=== PATIENT | male | born 1960 | race Caucasian/White ===

== ENCOUNTER 2017-03-17 19:43 | Emergency (ER) | payer OTHER ==
[2017-03-17 22:04] LABS: ADD MAN DIFF? NO
[2017-03-17 22:09] LABS: WHITE BLOOD COUNT 9.6 10^3/ul (4.8-10.8)
[2017-03-17 22:09] LABS: BASOPHILS % 0.4 % (0.0-2.0); EOSINOPHILS # 0.2 10^3/ul (0.0-0.5); EOSINOPHILS % 1.7 % (0.0-7.0); HEMATOCRIT 44.9 % (42.0-52.0); HEMOGLOBIN 15.1 g/dl (14.0-18.0); LYMPHOCYTES # 1.7 10^3/ul (0.8-2.9); MEAN CORPUSCULAR HEMOGLOBIN 28.2 pg (29.0-33.0); MEAN CORPUSCULAR HGB CONC 33.6 g/dl (32.0-37.0); MEAN CORPUSCULAR VOLUME 83.9 fl (82.0-101.0); MEAN PLATELET VOLUME 9.6 fl (7.4-10.4); MONOCYTE # 0.8 10^3/ul (0.3-0.9); MONOCYTES % 8.2 % (0.0-11.0); NEUTROPHIL # 6.9 10^3/ul (1.6-7.5); NEUTROPHILS % 71.4 % (39.0-77.0); PLATELET COUNT 224 10^3/UL (140-415); RED BLOOD COUNT 5.35 10^6/ul (4.70-6.10); RED CELL DISTRIBUTION WIDTH 13.3 % (11.5-14.5)
[2017-03-17 22:27] LABS: ANION GAP 13 (8-16); BLOOD UREA NITROGEN 22 mg/dl (7-20); CALCIUM 9.9 mg/dl (8.4-10.2); CARBON DIOXIDE 28 mmol/L (21-31); CHLORIDE 106 mmol/L (97-110); CREATININE 1.05 mg/dl (0.61-1.24); GLUCOSE 109 mg/dl (70-220); POTASSIUM 4.1 mmol/L (3.5-5.1); SODIUM 143 mmol/L (135-144)
[2017-03-17 22:39] LABS: TROPONIN-I < 0.012 ng/ml (0.00-0.12)
[2017-03-18] MEDS ORDERED: ONDANSETRON 4 MG TAB PO (01:00)
[2017-03-18] MEDS ORDERED: LORAZEPAM 2 MG INJ IV (01:00)
[2017-03-18] MEDS ORDERED: HEPARIN 25000 UNITS/250 ML 250 ML IV (01:00)
[2017-03-18] MEDS ORDERED: BISACODYL (EC) 5 MG TAB PO (01:00)
[2017-03-18] MEDS ORDERED: NACL 0.9% 3 ML SYG IV (01:00)
[2017-03-18] MEDS ORDERED: ONDANSETRON 4 MG INJ IV ×3 (01:00→01:30)
[2017-03-18] MEDS ORDERED: HYDROmorphONE 0.5 MG/0.5 ML SYG IV (01:00)
[2017-03-18] MEDS ORDERED: HYDROCODONE/APAP (5/325) TAB PO (01:00)
[2017-03-18] MEDS ORDERED: ZOLPIDEM 5 MG TAB PO (01:00)
[2017-03-18] MEDS ORDERED: ACETAMINOPHEN 325 MG TAB PO ×3 (01:00)
[2017-03-18] MEDS ORDERED: DOCUSATE SODIUM 100 MG CAP PO (01:00)
[2017-03-18] MEDS ORDERED: NA PHOSPHATE/BIPHOS 133 ML ENEMA PR (01:00)
[2017-03-18 01:37] LABS: ADD MAN DIFF? NO
[2017-03-18 01:42] LABS: BASOPHILS % 0.4 % (0.0-2.0); EOSINOPHILS # 0.2 10^3/ul (0.0-0.5); EOSINOPHILS % 2.4 % (0.0-7.0); HEMATOCRIT 42.6 % (42.0-52.0); HEMOGLOBIN 14.6 g/dl (14.0-18.0); LYMPHOCYTES # 2.4 10^3/ul (0.8-2.9); LYMPHOCYTES % 33.9 % (15.0-51.0); MEAN CORPUSCULAR HEMOGLOBIN 28.7 pg (29.0-33.0); MEAN CORPUSCULAR HGB CONC 34.3 g/dl (32.0-37.0); MEAN CORPUSCULAR VOLUME 83.9 fl (82.0-101.0); MEAN PLATELET VOLUME 9.4 fl (7.4-10.4); MONOCYTE # 0.6 10^3/ul (0.3-0.9); NEUTROPHIL # 3.9 10^3/ul (1.6-7.5); PLATELET COUNT 209 10^3/UL (140-415); RED BLOOD COUNT 5.08 10^6/ul (4.70-6.10); RED CELL DISTRIBUTION WIDTH 13.2 % (11.5-14.5)
[2017-03-18 01:42] LABS: WHITE BLOOD COUNT 7.1 10^3/ul (4.8-10.8)
[2017-03-18 02:03] LABS: CREATINE KINASE 100 IU/L (23-200)
[2017-03-18 02:09] LABS: INR 0.98; PARTIAL THROMBOPLASTIN TIME 25.4 Sec (25.0-35.0); PROTIME 13.1 Sec (11.9-14.9)
[2017-03-18 02:14] LABS: CK INDEX 1.3
[2017-03-18 02:21] LABS: CK-MB 1.26 ng/ml (0.0-2.4)
[2017-03-18 02:38] LABS: TROPONIN-I < 0.012 ng/ml (0.00-0.12)
[2017-03-18 02:48] LABS: ADD UMIC YES; UR AMORPHOUS CRYSTAL MANY /HPF (NONE SEEN); UR ASCORBIC ACID NEGATIVE (NEGATIVE); UR BILIRUBIN (Dip) NEGATIVE (NEGATIVE); UR BLOOD (Dip) NEGATIVE (NEGATIVE); UR CLARITY CLOUDY (CLEAR); UR COLOR RED (YELLOW); UR GLUCOSE (Dip) NEGATIVE (NEGATIVE); UR KETONES (Dip) NEGATIVE (NEGATIVE); UR LEUKOCYTE ESTERASE (Dip) NEGATIVE Leu/ul (NEGATIVE); UR NITRITE (Dip) NEGATIVE (NEGATIVE); UR RBC 0 /HPF (0-5); UR SPECIFIC GRAVITY (Dip) 1.013 (1.003-1.030); UR SQUAMOUS EPITHELIAL CELL FEW /HPF (FEW); UR TOTAL PROTEIN (Dip) NEGATIVE (NEGATIVE); UR UROBILINOGEN (Dip) NEGATIVE (NEGATIVE); UR WBC 0 /HPF (0-5)
[2017-03-18 02:49] LABS: AMPHETAMINE/METHAMPHETAMINE Negative (NEGATIVE); BARBITURATES Negative (NEGATIVE); BENZODIAZEPINES Negative (NEGATIVE); CANNABINOIDS Negative (NEGATIVE); COCAINE Negative (NEGATIVE); OPIATES Negative (NEGATIVE)
[2017-03-18 02:50] LABS: UR BACTERIA FEW /HPF (NONE SEEN)
[2017-03-18] MEDS: SOD CHLORIDE 0.9% 1,000 ML IV (03:29)
[2017-03-18] MEDS: PANTOPRAZOLE 40 MG INJ IV ×2 (03:30→06:00)
[2017-03-18 06:32] LABS: CREATINE KINASE 78 IU/L (23-200)
[2017-03-18 06:44] LABS: CK INDEX 1.4
[2017-03-18 06:45] LABS: CK-MB 1.08 ng/ml (0.0-2.4); TROPONIN-I < 0.012 ng/ml (0.00-0.12)
[2017-03-18] MEDS: CALCIUM CARBONATE 500 MG CHEW TAB PO ×2 (08:51→13:36)
[2017-03-18] MEDS: ASPIRIN (EC) 325 MG TAB PO (08:51)
[2017-03-18] MEDS: ISOSORBIDE MONONITRATE(SR)30 MG TAB PO (08:53)
[2017-03-18] MEDS: RANOLAZINE (SR) 500 MG TAB PO (08:55)
[2017-03-18] MEDS: METOPROLOL 25 MG TAB PO (08:55)
[2017-03-18] MEDS: HEPARIN 5,000 UNIT/0.5 ML VIAL SC (08:59)
[2017-03-18] MEDS ORDERED: FAMOTIDINE 20 MG INJ IV (09:00)
[2017-03-18] MEDS ORDERED: AMLODIPINE 10 MG TAB PO (09:00)
[2017-03-18] MEDS ORDERED: GABAPENTIN 100 MG CAP PO (09:00)
[2017-03-18] MEDS ORDERED: ISOSORBIDE MONONITRATE(SR)60 MG TAB PO (09:00)
[2017-03-18 10:47] LABS: ALANINE AMINOTRANSFERASE 32 IU/L (13-69); ALBUMIN 3.9 g/dl (3.3-4.9); ALBUMIN/GLOBULIN RATIO 1.44; ALKALINE PHOSPHATASE 49 IU/L (42-121); ANION GAP 11 (8-16); ASPARTATE AMINO TRANSFERASE 15 IU/L (15-46); BILIRUBIN,INDIRECT 0.8 mg/dl (0-1.1); BILIRUBIN,TOTAL 0.8 mg/dl (0.2-1.3); BLOOD UREA NITROGEN 15 mg/dl (7-20); CALCIUM 9.3 mg/dl (8.4-10.2); CARBON DIOXIDE 27 mmol/L (21-31); CHLORIDE 106 mmol/L (97-110); CHOL/HDL RATIO 3.8 RATIO; CHOLESTEROL 200 mg/dl (100-200); CREATININE 0.79 mg/dl (0.61-1.24); GLUCOSE 109 mg/dl (70-220); HDL CHOLESTEROL 52 mg/dl (28-71); LDL CHOLESTEROL,CALCULATED 137 mg/dl; POTASSIUM 3.7 mmol/L (3.5-5.1); SODIUM 140 mmol/L (135-144); TOTAL PROTEIN 6.6 g/dl (6.1-8.1); TRIGLYCERIDES 55 mg/dl (0-149)
[2017-03-18 11:05] LABS: MAGNESIUM 1.9 mg/dl (1.7-2.5)
[2017-03-18] MEDS ORDERED: REGADENOSON 0.4 MG/5 ML SYG (11:50)
[2017-03-18] MEDS ORDERED: ATORVASTATIN 20 MG TAB PO (21:00)
[2017-03-19] MEDS ORDERED: ASPIRIN 81 MG TAB PO (09:00)
[2017-03-19] MEDS ORDERED: RANOLAZINE (SR) 500 MG TAB PO (09:00)
[2017-03-19] MEDS ORDERED: CLOPIDOGREL 75 MG TAB PO (09:00)
== END 2017-03-18 15:18 | disposition home or self-care (01) ==
LOC: E/R 19:43
DX: R07.81 Pleurodynia (principal); I25.10 Atherosclerotic heart disease of native coronary artery without angina pectoris; I10 Essential (primary) hypertension; R07.9 Chest pain, unspecified; Z79.82 Long term (current) use of aspirin; Z98.61 Coronary angioplasty status
CPT/HCPCS: 36415; 71045; 78452; 80048; 80053; 80061; 80307; 81001; 82550; 82553; 83735; 84484; 85025; 85610; 85730; 86850; 86900; 86901; 87086; 93005; 93017; 93306; 96372; 99285-25

== ENCOUNTER 2018-08-03 07:49 | Observation (INO) | payer OTHER ==
[2018-08-03 08:04] LABS: ADD MAN DIFF? NO
[2018-08-03 08:06] LABS: WHITE BLOOD COUNT 10.3 10^3/ul (4.8-10.8)
[2018-08-03 08:06] LABS: BASOPHILS % 0.4 % (0.0-2.0); EOSINOPHILS # 0.1 10^3/ul (0.0-0.5); EOSINOPHILS % 1.4 % (0.0-7.0); HEMATOCRIT 46.4 % (42.0-52.0); HEMOGLOBIN 15.8 g/dl (14.0-18.0); LYMPHOCYTES # 2.3 10^3/ul (0.8-2.9); LYMPHOCYTES % 22.2 % (15.0-51.0); MEAN CORPUSCULAR HEMOGLOBIN 28.3 pg (29.0-33.0); MEAN CORPUSCULAR HGB CONC 34.1 g/dl (32.0-37.0); MEAN CORPUSCULAR VOLUME 83.2 fl (82.0-101.0); MEAN PLATELET VOLUME 9.5 fl (7.4-10.4); MONOCYTE # 0.6 10^3/ul (0.3-0.9); MONOCYTES % 6.2 % (0.0-11.0); NEUTROPHIL # 7.2 10^3/ul (1.6-7.5); NEUTROPHILS % 69.4 % (39.0-77.0); PLATELET COUNT 224 10^3/UL (140-415); RED BLOOD COUNT 5.58 10^6/ul (4.70-6.10); RED CELL DISTRIBUTION WIDTH 13.1 % (11.5-14.5)
[2018-08-03] MEDS: ONDANSETRON 4 MG INJ IV (08:14)
[2018-08-03] MEDS: morphine 4 MG/ML VIAL IV (08:14)
[2018-08-03 08:25] LABS: ALANINE AMINOTRANSFERASE 37 IU/L (13-69); ALBUMIN/GLOBULIN RATIO 1.33; ALKALINE PHOSPHATASE 58 IU/L (42-121); ANION GAP 9 (5-13); ASPARTATE AMINO TRANSFERASE 21 IU/L (15-46); BILIRUBIN,INDIRECT 1.2 mg/dl (0-1.1); BILIRUBIN,TOTAL 1.2 mg/dl (0.2-1.3); BLOOD UREA NITROGEN 18 mg/dl (7-20); CALCIUM 9.4 mg/dl (8.4-10.2); CARBON DIOXIDE 27 mmol/L (21-31); CHLORIDE 106 mmol/L (97-110); CREATINE KINASE 86 IU/L (23-200); CREATININE 0.89 mg/dl (0.61-1.24); Estimated GFR > 60 mL/min (>60); GLUCOSE 130 mg/dl (70-220); INR 0.89; LIPASE 66 U/L (23-300); POTASSIUM 3.9 mmol/L (3.5-5.1); PROTIME 12.1 Sec (11.9-14.9); PT RATIO 0.9; SODIUM 142 mmol/L (135-144)
[2018-08-03 08:26] LABS: PARTIAL THROMBOPLASTIN TIME 26.4 Sec (23.0-35.0)
[2018-08-03 08:37] LABS: B-TYPE NATRIURETIC PEPTIDE 39 PG/ML (0-125); CK-MB 0.86 ng/ml (0.0-2.4); TROPONIN-I < 0.012 ng/ml (0.000-0.120)
[2018-08-03] MEDS: IOHEXOL 100 ML (09:24)
[2018-08-03] MEDS: SOD CHLORIDE 0.9% 100 ML (09:24)
[2018-08-03] MEDS ORDERED: ONDANSETRON 4 MG INJ IV ×2 (11:00→12:00)
[2018-08-03] MEDS ORDERED: ACETAMINOPHEN 325 MG TAB PO ×2 (11:00→12:00)
[2018-08-03] MEDS: ASPIRIN 81 MG TAB PO (11:03)
[2018-08-03] MEDS ORDERED: NITROGLYCERIN (SL) 0.4 MG TAB SL (12:00)
[2018-08-03] MEDS ORDERED: HYDROCODONE/APAP (5/325) TAB PO (12:00)
[2018-08-03] MEDS ORDERED: NACL 0.9% 3 ML SYG IV (12:00)
[2018-08-03 12:37] LABS: B-TYPE NATRIURETIC PEPTIDE 33 PG/ML (0-125)
[2018-08-03 13:18] LABS: HEMOGLOBIN A1C 5.7 % (0-5.9)
[2018-08-03 13:44] LABS: THYROID STIMULATING HORMONE 0.222 MIU/L (0.465-4.680)
[2018-08-03] MEDS: MECLIZINE 12.5 MG TAB PO (13:53)
[2018-08-03 17:19] LABS: FREE T4 (FREE THYROXINE) 1.96 ng/dl (0.64-1.79)
[2018-08-03 19:48] LABS: CREATINE KINASE 64 IU/L (23-200)
[2018-08-03 19:59] LABS: CK INDEX 0.9; CK-MB 0.59 ng/ml (0.0-2.4)
[2018-08-03 20:24] LABS: TROPONIN-I < 0.012 ng/ml (0.000-0.120)
[2018-08-03] MEDS: ATORVASTATIN 40 MG TAB PO (20:56)
[2018-08-03] MEDS: AMLODIPINE 5 MG TAB PO (20:56)
[2018-08-03] MEDS ORDERED: PROPRANOLOL 20 MG TAB PO (21:00)
[2018-08-04 00:10] LABS: CREATINE KINASE 54 IU/L (23-200)
[2018-08-04 00:21] LABS: CK INDEX 0.9; TROPONIN-I < 0.012 ng/ml (0.000-0.120)
[2018-08-04] MEDS: ASPIRIN (EC) 81 MG TAB PO (08:41)
[2018-08-04] MEDS: ISOSORBIDE MONONITRATE(SR)60 MG TAB PO (08:41)
[2018-08-04] MEDS: CLOPIDOGREL 75 MG TAB PO (08:41)
[2018-08-04] MEDS: AMLODIPINE 5 MG TAB PO (08:42)
[2018-08-04] MEDS: ENOXAPARIN 40 MG/0.4 ML SYG SC (08:46)
[2018-08-04 09:09] LABS: ADD MAN DIFF? NO
[2018-08-04 09:11] LABS: WHITE BLOOD COUNT 8.1 10^3/ul (4.8-10.8)
[2018-08-04 09:11] LABS: BASOPHILS % 0.4 % (0.0-2.0); EOSINOPHILS # 0.1 10^3/ul (0.0-0.5); EOSINOPHILS % 0.7 % (0.0-7.0); HEMATOCRIT 46.5 % (42.0-52.0); HEMOGLOBIN 15.6 g/dl (14.0-18.0); LYMPHOCYTES # 1.8 10^3/ul (0.8-2.9); LYMPHOCYTES % 22.1 % (15.0-51.0); MEAN CORPUSCULAR HEMOGLOBIN 28.1 pg (29.0-33.0); MEAN CORPUSCULAR HGB CONC 33.5 g/dl (32.0-37.0); MEAN CORPUSCULAR VOLUME 83.8 fl (82.0-101.0); MEAN PLATELET VOLUME 9.9 fl (7.4-10.4); MONOCYTE # 0.5 10^3/ul (0.3-0.9); MONOCYTES % 5.7 % (0.0-11.0); NEUTROPHIL # 5.7 10^3/ul (1.6-7.5); NEUTROPHILS % 70.9 % (39.0-77.0); PLATELET COUNT 225 10^3/UL (140-415); RED BLOOD COUNT 5.55 10^6/ul (4.70-6.10); RED CELL DISTRIBUTION WIDTH 13.1 % (11.5-14.5)
[2018-08-04 09:31] LABS: CHOL/HDL RATIO 3.7 RATIO; CHOLESTEROL 168 mg/dl (100-200); HDL CHOLESTEROL 45 mg/dl (28-71); LDL CHOLESTEROL,CALCULATED 109 mg/dl; TRIGLYCERIDES 71 mg/dl (0-149)
[2018-08-04 09:31] LABS: PHOSPHORUS 2.7 mg/dl (2.5-4.9)
[2018-08-04 09:33] LABS: INR 0.94; PROTIME 12.7 Sec (11.9-14.9)
[2018-08-04 09:34] LABS: ALANINE AMINOTRANSFERASE 31 IU/L (13-69); ALBUMIN 3.8 g/dl (3.3-4.9); ALBUMIN/GLOBULIN RATIO 1.35; ALKALINE PHOSPHATASE 53 IU/L (42-121); ANION GAP 7 (5-13); ASPARTATE AMINO TRANSFERASE 18 IU/L (15-46); BILIRUBIN,INDIRECT 1.4 mg/dl (0-1.1); BILIRUBIN,TOTAL 1.4 mg/dl (0.2-1.3); BLOOD UREA NITROGEN 13 mg/dl (7-20); CALCIUM 9.2 mg/dl (8.4-10.2); CARBON DIOXIDE 28 mmol/L (21-31); CHLORIDE 106 mmol/L (97-110); CREATININE 0.82 mg/dl (0.61-1.24); Estimated GFR > 60 mL/min (>60); GLUCOSE 114 mg/dl (70-220); PARTIAL THROMBOPLASTIN TIME 24.3 Sec (23.0-35.0); POTASSIUM 3.8 mmol/L (3.5-5.1); SODIUM 141 mmol/L (135-144); TOTAL PROTEIN 6.6 g/dl (6.1-8.1)
[2018-08-04 09:36] LABS: CREATINE KINASE 48 IU/L (23-200)
[2018-08-04 09:42] LABS: CK INDEX 0.9; CK-MB 0.44 ng/ml (0.0-2.4); TROPONIN-I < 0.012 ng/ml (0.000-0.120)
[2018-08-04] MEDS: REGADENOSON 0.4 MG/5 ML SYG (13:20)
[2018-08-04] MEDS: DOXAZOSIN 1 MG TAB PO (16:30)
[2018-08-04] MEDS: ATORVASTATIN 40 MG TAB PO (20:37)
[2018-08-04] MEDS: DOXAZOSIN 2 MG TAB PO (20:38)
[2018-08-04] MEDS: AMLODIPINE 2.5 MG TAB PO (20:38)
[2018-08-04] MEDS: DEXAMETHASONE 1 MG TAB PO (22:36)
[2018-08-05 08:00] LABS: ADD MAN DIFF? NO
[2018-08-05] MEDS: ASPIRIN (EC) 81 MG TAB PO (08:31)
[2018-08-05] MEDS: ISOSORBIDE MONONITRATE(SR)30 MG TAB PO (08:32)
[2018-08-05] MEDS: LACTATED RINGER'S 500 ML IV (08:32)
[2018-08-05] MEDS: DOXAZOSIN 2 MG TAB PO (08:32)
[2018-08-05] MEDS: CLOPIDOGREL 75 MG TAB PO (08:32)
[2018-08-05 08:34] LABS: WHITE BLOOD COUNT 5.7 10^3/ul (4.8-10.8)
[2018-08-05 08:34] LABS: BASOPHILS % 0.5 % (0.0-2.0); EOSINOPHILS # 0.1 10^3/ul (0.0-0.5); HEMOGLOBIN 15.1 g/dl (14.0-18.0); LYMPHOCYTES # 1.6 10^3/ul (0.8-2.9); LYMPHOCYTES % 28.5 % (15.0-51.0); MEAN CORPUSCULAR HEMOGLOBIN 28.4 pg (29.0-33.0); MEAN CORPUSCULAR HGB CONC 33.6 g/dl (32.0-37.0); MEAN CORPUSCULAR VOLUME 84.6 fl (82.0-101.0); MEAN PLATELET VOLUME 9.5 fl (7.4-10.4); MONOCYTE # 0.4 10^3/ul (0.3-0.9); MONOCYTES % 7.2 % (0.0-11.0); NEUTROPHIL # 3.6 10^3/ul (1.6-7.5); NEUTROPHILS % 62.6 % (39.0-77.0); PLATELET COUNT 221 10^3/UL (140-415); RED BLOOD COUNT 5.32 10^6/ul (4.70-6.10); RED CELL DISTRIBUTION WIDTH 13.1 % (11.5-14.5)
[2018-08-05] MEDS: ENOXAPARIN 40 MG/0.4 ML SYG SC (08:36)
[2018-08-05 09:00] LABS: INR 0.91; PROTIME 12.4 Sec (11.9-14.9)
[2018-08-05 09:05] LABS: ALANINE AMINOTRANSFERASE 30 IU/L (13-69); ALBUMIN 3.7 g/dl (3.3-4.9); ALBUMIN/GLOBULIN RATIO 1.32; ALKALINE PHOSPHATASE 51 IU/L (42-121); ANION GAP 7 (5-13); ASPARTATE AMINO TRANSFERASE 16 IU/L (15-46); BLOOD UREA NITROGEN 19 mg/dl (7-20); CALCIUM 8.9 mg/dl (8.4-10.2); CARBON DIOXIDE 27 mmol/L (21-31); CHLORIDE 106 mmol/L (97-110); CREATININE 0.78 mg/dl (0.61-1.24); Estimated GFR > 60 mL/min (>60); GLUCOSE 112 mg/dl (70-220); POTASSIUM 4.2 mmol/L (3.5-5.1); SODIUM 140 mmol/L (135-144); TOTAL PROTEIN 6.5 g/dl (6.1-8.1)
[2018-08-05 09:17] LABS: FREE T4 (FREE THYROXINE) 1.38 ng/dl (0.64-1.79)
[2018-08-05 13:11] LABS: MAGNESIUM 2.1 mg/dl (1.7-2.5)
[2018-08-05 13:11] LABS: PHOSPHORUS 3.4 mg/dl (2.5-4.9)
[2018-08-05 13:43] LABS: TRIIODOTHYRONINE 0.92 ng/ml (0.97-1.69)
[2018-08-05 14:18] LABS: FOLATE 9.7 ng/ml (2.8-20.0)
[2018-08-07 19:37] LABS: ALDOSTERONE 3 ng/dL
== END 2018-08-05 12:24 | disposition home or self-care (01) ==
LOC: E/R 07:49 → TEL 10:40
DX: R07.89 Other chest pain (principal); I25.10 Atherosclerotic heart disease of native coronary artery without angina pectoris; Z95.5 Presence of coronary angioplasty implant and graft; I10 Essential (primary) hypertension; Z79.82 Long term (current) use of aspirin; E78.5 Hyperlipidemia, unspecified; M54.2 Cervicalgia; I95.1 Orthostatic hypotension; E27.9 Disorder of adrenal gland, unspecified
CPT/HCPCS: 36415; 70450; 71045; 71275; 72040; 74183; 78452; 80053; 80061; 82088; 82384; 82533; 82550; 82553; 82607; 82746; 82962; 83036; 83690; 83735; 83880; 84100; 84244; 84439; 84443; 84480; 84484; 85025; 85610; 85730; 93005; 93017; 93306; 96374; 96375; 99285-25; G0378